=== PATIENT | female | born 2000 | race African-American/Black ===

== ENCOUNTER 2020-11-28 03:18 | Inpatient (IN) ==
[~2020-11-28 03:18] MED LIST: CITRIC ACID/SODIUM CITRATE 30 ML UDCUP PO ONE; FAMOTIDINE 20 MG/2 ML VIAL IV ONE; ceFAZolin 2,000 MG/50 ML DUPLEX IV ONE
[2020-11-28] MEDS: LACTATED RINGERS 1,000 ML IV SCH ×3 (03:30→13:24)
[2020-11-28] MEDS ORDERED: SODIUM CHLORIDE 0.9% 1,000 ML IV PRN (03:34)
[2020-11-28] MEDS ORDERED: TRANEXAMIC ACID 1,000 MG/10 ML VIAL ONE (03:39)
[2020-11-28] MEDS ORDERED: miSOPROStoL 200 MCG TABLET ONE (03:39)
[2020-11-28] MEDS ORDERED: CARBOPROST TROMETHAMINE 250 MCG/ML AMP IM ONE (03:39)
[2020-11-28] MEDS ORDERED: METHYLERGONOVINE 0.2 MG/1 ML AMP ONE (03:39)
[2020-11-28] MEDS ORDERED: MAGNESIUM SULF DRIP 40 GM/1,000 ML ML IV ONE (03:40)
[2020-11-28] MEDS ORDERED: LABETALOL 100 MG/20 ML VIAL IV ONE ×2 (03:41→03:44)
[2020-11-28 03:42] LABS: Basophils # 0.1 10*3/uL (0.0-0.2); Basophils % 0.5 % (0.0-0.8); Eosinophils # 0.3 10*3/uL (0.0-0.87); Eosinophils % 2.7 % (0.00-10.9); Hematocrit 31.4 VOL% (35.7-47.0); Hemoglobin 10.9 GM/DL (12.0-16.0); Immature Granulocytes % 0.4 %; Immature Granulocytes Absolute 0.04 #; Lymphocytes # 3.1 10*3/uL (1.4-4.0); Lymphocytes % 29.3 % (21.3-54.2); Mean Corpuscular HGB Conc 34.7 GM/DL (32-36); Monocytes % 7.3 % (1.7-12.7); Neutrophils % 59.8 % (38.7-73.9); Platelet Count 232 T/CUMM (130-400); Red Blood Count 3.65 MC/CUMM (3.8-5.5); Red Cell Distribution Width 12.4 % (9.3-17.3); White Blood Count 10.4 T/CUMM (4-12)
[2020-11-28] MEDS ORDERED: ONDANSETRON 4 MG/2 ML VIAL ONE ×2 (03:50→04:35)
[2020-11-28] MEDS ORDERED: MAGNESIUM SULF DRIP 40 GM/1,000 ML ML IV SCH (04:00)
[2020-11-28 04:01] LABS: INR 0.9; PT Patient Result 10.3 SECS (10.5-12.0); Partial Thromboplastin Time 26.8 SECS (23.9-33.8)
[2020-11-28] MEDS ORDERED: MEPERIDINE 50 MG/1 ML VIAL IV PRN (04:09)
[2020-11-28] MEDS ORDERED: PROMETHAZINE INJ 25 MG in SODIUM CHLORIDE 0.9% 50 ML IV PRN (04:10)
[2020-11-28] MEDS ORDERED: SUCCINYLCHOLINE 200 MG/10 ML VIAL ONE (04:35)
[2020-11-28] MEDS ORDERED: DEXAMETHASONE 4 MG/1 ML VIAL ONE ×2 (04:35→05:36)
[2020-11-28] MEDS ORDERED: fentaNYL 100 MCG/2 ML VIAL ONE (04:35)
[2020-11-28] MEDS ORDERED: LIDOCAINE 2% 5 ML VIAL ONE (04:35)
[2020-11-28] MEDS ORDERED: propofoL 200 MG/20 ML VIAL IV ONE (04:35)
[2020-11-28] MEDS ORDERED: MIDAZOLAM 2 MG/2 ML VIAL ONE (04:35)
[2020-11-28 04:41] LABS: HIV Antigen/Antibody Result Nonreactive (Nonreactive); Hepatitis B Surface Ag Quant < 0.10 Index; Hepatitis B Surface Ag Result Non-Reactive (NonReactive)
[2020-11-28] MEDS ORDERED: OXYTOCIN/LR 20 UNIT/1,000 ML BAG IV ONE ×2 (05:14→06:16)
[2020-11-28] MEDS ORDERED: KETOROLAC 30 MG/1 ML VIAL ONE (05:48)
[2020-11-28] MEDS ORDERED: MAGNESIUM HYDROXIDE SUSP 30 ML UDCUP PO PRN (06:16)
[2020-11-28] MEDS ORDERED: RHO(D) IMMUNE GLOBULIN 300 MCG SYRINGE IM ONE (06:16)
[2020-11-28] MEDS ORDERED: ACETAMINOPHEN 325 MG TABLET PO PRN (06:16)
[2020-11-28] MEDS ORDERED: SIMETHICONE CHEW 80 MG TABLET PO PRN (06:16)
[2020-11-28] MEDS ORDERED: ONDANSETRON 4 MG/2 ML VIAL IV PRN (06:16)
[2020-11-28] MEDS ORDERED: oxyCODONE/ACETAMINOPHEN 5-325 MG TABLET PO PRN (06:17)
[2020-11-28] MEDS ORDERED: LACTATED RINGERS 1,000 ML IV SCH (06:30)
[2020-11-28] MEDS ORDERED: SEVOFLURANE 1 UNIT/15 MINUTE INH ONE (06:49)
[2020-11-28] MEDS ORDERED: HYDROmorphone 2 MG/1 ML VIAL IV PRN (08:15)
[2020-11-28] MEDS: LABETALOL 200 MG TABLET PO SCH ×2 (09:11→21:28)
[2020-11-28 09:12] LABS: Albumin 2.1 G/DL (3.4-5.0); Bilirubin,Total 1.6 MG/DL (0.20-1.00); Calcium 8.4 MG/DL (8.5-10.1); Osmolality,Calculated 278.3 MOS/KG (273-304); Potassium 4.4 MMOL/L (3.5-5.1); Total Protein 5.2 G/DL (6.4-8.2); Uric Acid 4.3 MG/DL (2.6-6.0)
[2020-11-28] MEDS: KETOROLAC 30 MG/1 ML VIAL IV SCH ×2 (12:03→18:13)
[2020-11-28] MEDS: ACETAMINOPHEN 500 MG TABLET PO SCH ×2 (12:03→18:10)
[2020-11-28 12:34] LABS: Bacteria,Urine Few /HPF (Few); Bilirubin,Urine Negative (Negative); Blood, Urine Moderate mg/dL (Negative); Glucose,Urine (UA) Negative (Negative); Hyaline Casts,Urine 30 /LPF (0-3); Ketones,Urine Negative (Negative); Mucus,Urine Many /LPF (Occasional); Nitrite,Urine Negative (Negative); Protein,Urine 100 MG/DL; RBC,Urine 17 /HPF (0-4); Squamous Epithelial Cell,Urine Few /HPF (0-10); Urine Appearance CLOUDY (Clear); Urine Color Amber (Yellow); Urine Specific Gravity 1.027 (1.001-1.035); Urine Urobilinogen < 2.0 EU/DL (0.2-1.0)
[2020-11-28] MEDS: MULTIVITAMIN (PRENATAL) TABLET PO SCH (13:24)
[2020-11-28] MEDS: DOCUSATE SODIUM 100 MG CAPSULE PO SCH ×2 (13:24→21:32)
[2020-11-28 13:25] LABS: Basophils % 0.1 % (0.0-0.8); Immature Granulocytes % 0.5 %; Immature Granulocytes Absolute 0.08 #; Lymphocytes # 0.8 10*3/uL (1.4-4.0); Lymphocytes % 4.5 % (21.3-54.2); Mean Corpuscular HGB Conc 33.6 GM/DL (32-36); Mean Corpuscular Volume 90.2 FL (87-102); Mean Platelet Volume 10.6 FL (9.6-12.0); Monocytes % 1.5 % (1.7-12.7); Neutrophils % 93.4 % (38.7-73.9); Red Cell Distribution Width 12.7 % (9.3-17.3)
[2020-11-28 13:26] LABS: White Blood Count 17.2 T/CUMM (4-12)
[2020-11-28 13:27] LABS: Hemoglobin 7.4 GM/DL (12.0-16.0); Platelet Count 135 T/CUMM (130-400); Red Blood Count 2.44 MC/CUMM (3.8-5.5)
[2020-11-28 13:58] LABS: Barbiturates Screen,Urine Negative (Negative); Benzodiazepines Screen,Urine Positive (Negative); Cannabinoid Screen,Urine Negative (Negative); Opiate Screen,Urine Negative (Negative); Phencyclidine Screen,Urine Negative (Negative)
[2020-11-28 14:35] LABS: Lymphocytes 3 % (20-55); Segmented Neutrophils 95 % (50-85); Total Cells Counted 100
[2020-11-28 14:47] LABS: Hypochromasia 1+; Microcytosis 1+; Platelet Estimate Normal; Polychromasia Slight
[2020-11-28 18:07] LABS: Hematocrit 21.2 VOL% (35.7-47.0); Hemoglobin 7.1 GM/DL (12.0-16.0)
[2020-11-29 01:11] LABS: Basophils % 0.1 % (0.0-0.8); Hematocrit 18.9 VOL% (35.7-47.0); Immature Granulocytes % 0.5 %; Immature Granulocytes Absolute 0.09 #; Lymphocytes # 1.8 10*3/uL (1.4-4.0); Lymphocytes % 10.9 % (21.3-54.2); Mean Corpuscular HGB Conc 33.9 GM/DL (32-36); Mean Corpuscular Volume 88.7 FL (87-102); Mean Platelet Volume 11.2 FL (9.6-12.0); Monocytes % 7.1 % (1.7-12.7); Neutrophils % 81.4 % (38.7-73.9); Platelet Count 140 T/CUMM (130-400); Red Blood Count 2.13 MC/CUMM (3.8-5.5); Red Cell Distribution Width 12.6 % (9.3-17.3); White Blood Count 16.8 T/CUMM (4-12)
[2020-11-29 01:14] LABS: Hemoglobin 6.4 GM/DL (12.0-16.0)
[2020-11-29] MEDS ORDERED: LABETALOL 200 MG TABLET PO ONE (03:39)
[2020-11-29 07:58] LABS: Basophils % 0.2 % (0.0-0.8); Eosinophils % 0.1 % (0.00-10.9); Hematocrit 23.8 VOL% (35.7-47.0); Hemoglobin 8.4 GM/DL (12.0-16.0); Immature Granulocytes % 0.6 %; Immature Granulocytes Absolute 0.09 #; Lymphocytes # 2.4 10*3/uL (1.4-4.0); Lymphocytes % 17.1 % (21.3-54.2); Mean Corpuscular HGB Conc 35.3 GM/DL (32-36); Mean Corpuscular Volume 84.4 FL (87-102); Mean Platelet Volume 10.6 FL (9.6-12.0); Monocytes % 8.3 % (1.7-12.7); Neutrophils % 73.7 % (38.7-73.9); Platelet Count 121 T/CUMM (130-400); Red Blood Count 2.82 MC/CUMM (3.8-5.5); White Blood Count 13.9 T/CUMM (4-12)
[2020-11-29] MEDS: DOCUSATE SODIUM 100 MG CAPSULE PO SCH ×2 (09:26→21:02)
[2020-11-29] MEDS: MULTIVITAMIN (PRENATAL) TABLET PO SCH (09:26)
[2020-11-29] MEDS: LABETALOL 200 MG TABLET PO SCH ×2 (09:26→21:02)
[2020-11-29] MEDS: IBUPROFEN 800 MG TABLET PO PRN (09:27)
[2020-11-30] MEDS ORDERED: IRON (CARBONYL)/VIT C/B12/FA TABLET PO SCH (09:00)
[2020-11-30] MEDS: DOCUSATE SODIUM 100 MG CAPSULE PO SCH (09:29)
[2020-11-30] MEDS: MULTIVITAMIN (PRENATAL) TABLET PO SCH (09:29)
[2020-11-30] MEDS: LABETALOL 200 MG TABLET PO SCH (09:29)
[2020-11-30] MEDS: IBUPROFEN 800 MG TABLET PO PRN (11:30)
[2020-11-30 11:34] VITALS: BP 146/96
== END 2020-11-30 12:20 | disposition home or self-care (01) | DRG 540 ==
LOC: N.LDOUT 03:18 → N.LD 03:19 → N.OB 11-29 10:12
PROVIDERS: ADMIT Obstetrics & Gynecology; ATTEND Obstetrics & Gynecology
PROC: LDCSECT (ICD-10-PCS; 2020-11-28 05:00)

== ENCOUNTER 2021-09-15 08:09 | Inpatient (IN) ==
[2021-09-15 08:52] LABS: Amorphous Crystals,Urine Occasional /HPF (Few); Bacteria,Urine Many /HPF (Few); Mucus,Urine Many /LPF (Occasional); RBC,Urine 7 /HPF (0-4); Squamous Epithelial Cell,Urine Many /HPF (0-10)
[2021-09-15 08:53] LABS: Bilirubin,Urine Small mg/dL (Negative); Glucose,Urine (UA) Negative (Negative); Ketones,Urine Trace mg/dL (Negative); Nitrite,Urine Negative (Negative); Protein,Urine >=300 mg/dL (Negative); Urine Appearance Cloudy (Clear); Urine Color Dark Yellow (Yellow); Urine Specific Gravity 1.025 (1.001-1.035); Urine pH 6.5 (4.5-8.0)
[2021-09-15 08:54] LABS: Blood, Urine Moderate mg/dL (Negative)
[2021-09-15] MEDS ORDERED: miSOPROStoL 200 MCG TABLET PO ONE (09:05)
[2021-09-15] MEDS ORDERED: miSOPROStoL 200 MCG TABLET RECTAL PRN (09:06)
[2021-09-15] MEDS ORDERED: CARBOPROST TROMETHAMINE 250 MCG/ML AMP IM PRN (09:06)
[2021-09-15] MEDS ORDERED: LIDOCAINE 1% 50 ML VIAL MISC INJ ONE (09:06)
[2021-09-15] MEDS ORDERED: TRANEXAMIC ACID 1,000 MG in SODIUM CHLORIDE 0.9% 100 ML IV PRN (09:06)
[2021-09-15] MEDS ORDERED: OXYTOCIN/LR 20 UNIT/1,000 ML BAG IV ONE (09:06)
[2021-09-15] MEDS ORDERED: ONDANSETRON 4 MG/2 ML VIAL IV PRN (09:06)
[2021-09-15] MEDS ORDERED: BUTORPHANOL 2 MG/ML VIAL IV PRN (09:06)
[2021-09-15] MEDS ORDERED: METHYLERGONOVINE 0.2 MG/1 ML AMP IM PRN (09:06)
[2021-09-15] MEDS: NIFEdipine 10 MG CAPSULE PO PRN ×2 (09:13→09:50)
[2021-09-15 09:25] LABS: Basophils % 0.4 % (0.0-0.8); Eosinophils # 0.2 10*3/uL (0.0-0.87); Eosinophils % 2.8 % (0.00-10.9); Hematocrit 35.3 VOL% (35.7-47.0); Hemoglobin 11.7 GM/DL (12.0-16.0); Immature Granulocytes % 0.4 %; Immature Granulocytes Absolute 0.03 #; Lymphocytes # 1.5 10*3/uL (1.4-4.0); Lymphocytes % 20.7 % (21.3-54.2); Mean Corpuscular HGB Conc 33.1 GM/DL (32-36); Mean Corpuscular Volume 86.1 FL (87-102); Mean Platelet Volume 10.7 FL (9.6-12.0); Monocytes # 0.7 10*3/uL (0.11-0.8); Monocytes % 9.8 % (1.7-12.7); Neutrophils % 65.9 % (38.7-73.9); Platelet Count 319 T/CUMM (130-400); Red Cell Distribution Width 12.5 % (9.3-17.3); White Blood Count 7.1 T/CUMM (4-12)
[2021-09-15] MEDS: LACTATED RINGERS 1,000 ML IV SCH ×3 (09:28→23:51)
[2021-09-15] MEDS ORDERED: miSOPROStoL 200 MCG TABLET VAG ONE ×4 (09:39→23:16)
[2021-09-15 09:47] LABS: Albumin 2.6 G/DL (3.4-5.0); Bilirubin,Direct 0.16 MG/DL (0.0-0.20); Bilirubin,Total 0.7 MG/DL (0.20-1.00); Calcium 9.2 MG/DL (8.5-10.1); Osmolality,Calculated 273.5 MOS/KG (273-304); Potassium 3.5 MMOL/L (3.5-5.1); Total Protein 6.6 G/DL (6.4-8.2); Uric Acid 4.2 MG/DL (2.6-6.0)
[2021-09-15 10:05] LABS: Barbiturates Screen,Urine Negative (Negative); Benzodiazepines Screen,Urine Negative (Negative); Cannabinoid Screen,Urine Positive (Negative); Opiate Screen,Urine Negative (Negative); Phencyclidine Screen,Urine Negative (Negative)
[2021-09-15 10:21] LABS: Rubella Antibody IgG Result Reactive (NonReactive)
[2021-09-15 10:36] LABS: INR 0.8; PT Patient Result 9.4 SECS (10.5-12.0); Partial Thromboplastin Time 26.4 SECS (23.8-32.1)
[2021-09-15] MEDS ORDERED: MAGNESIUM SULF RIDER 4 GM/100 ML PREMIX IV ONE (10:42)
[2021-09-15] MEDS: MAGNESIUM SULF DRIP 40 GM/1,000 ML ML IV SCH (11:19)
[2021-09-15 11:23] LABS: Protein/Creatinine Ratio,Urine 5.5 RATIO
[2021-09-15] MEDS: ACETAMINOPHEN 500 MG TABLET PO PRN ×3 (11:24→21:08)
[2021-09-15] MEDS ORDERED: PROPRANOLOL 10 MG TABLET PO ONE (12:31)
[2021-09-15] MEDS: AMPICILLIN INJ 2,000 MG in SODIUM CHLORIDE 0.9% 100 ML IV SCH ×2 (16:47→22:58)
[2021-09-15] MEDS: MEPERIDINE 50 MG/1 ML VIAL IV PRN ×2 (17:56→22:11)
[2021-09-16] MEDS: MEPERIDINE 50 MG/1 ML VIAL IV PRN (01:15)
[2021-09-16] MEDS ORDERED: OXYTOCIN/LR 20 UNIT/1,000 ML BAG IV ONE ×2 (02:25→03:36)
[2021-09-16] MEDS ORDERED: miSOPROStoL 200 MCG TABLET ONE (02:28)
[2021-09-16] MEDS ORDERED: TRANEXAMIC ACID 1,000 MG/10 ML VIAL ONE (02:28)
[2021-09-16] MEDS ORDERED: CARBOPROST TROMETHAMINE 250 MCG/ML AMP IM ONE (02:29)
[2021-09-16] MEDS ORDERED: METHYLERGONOVINE 0.2 MG/1 ML AMP ONE (02:29)
[2021-09-16] MEDS ORDERED: SODIUM CHLORIDE 0.9% 0 ML IV ONE (02:29)
[2021-09-16] MEDS: ACETAMINOPHEN 500 MG TABLET PO PRN ×2 (06:01→17:49)
[2021-09-16] MEDS: LACTATED RINGERS 1,000 ML IV SCH (07:30)
[2021-09-16] MEDS: MAGNESIUM SULF DRIP 40 GM/1,000 ML ML IV SCH (07:30)
[2021-09-16] MEDS ORDERED: IBUPROFEN 800 MG TABLET PO PRN (17:40)
[2021-09-16] MEDS: LABETALOL 200 MG TABLET PO SCH (17:46)
[2021-09-17 06:19] LABS: Basophils % 0.5 % (0.0-0.8); Eosinophils # 0.2 10*3/uL (0.0-0.87); Eosinophils % 2.6 % (0.00-10.9); Hematocrit 29.6 VOL% (35.7-47.0); Hemoglobin 9.6 GM/DL (12.0-16.0); Immature Granulocytes % 0.9 %; Immature Granulocytes Absolute 0.07 #; Lymphocytes # 1.9 10*3/uL (1.4-4.0); Lymphocytes % 22.7 % (21.3-54.2); Mean Corpuscular HGB Conc 32.4 GM/DL (32-36); Mean Corpuscular Volume 87.6 FL (87-102); Mean Platelet Volume 10.5 FL (9.6-12.0); Monocytes # 0.8 10*3/uL (0.11-0.8); Monocytes % 9.8 % (1.7-12.7); Neutrophils % 63.5 % (38.7-73.9); Platelet Count 169 T/CUMM (130-400); Red Blood Count 3.38 MC/CUMM (3.8-5.5); Red Cell Distribution Width 13.2 % (9.3-17.3); White Blood Count 8.2 T/CUMM (4-12)
[2021-09-17] MEDS: LABETALOL 200 MG TABLET PO SCH (09:49)
[2021-09-17 16:18] VITALS: BP 150/88
== END 2021-09-17 15:00 | disposition home or self-care (01) | DRG 560 ==
LOC: N.LDOUT 08:09 → N.LD 08:13 → N.OB 09-16 15:09
PROVIDERS: ADMIT Obstetrics & Gynecology; ATTEND Nurse Practitioner